=== PATIENT | female | born 1950 | race Two or more races ===

== ENCOUNTER 2020-12-19 06:19 | Day surgery (SDC) | payer OTHER ==
[2021-01-16] MEDS ORDERED: METOPROLOL SUCC50 MG PO (13:12)
[2021-01-16] MEDS ORDERED: COZAAR100 MG PO (13:12)
[2021-01-16] MEDS ORDERED: SIMVASTATIN PO (13:27)
[2021-01-16] MEDS ORDERED: DETROL LA4 MG PO (13:29)
== END 2020-12-19 10:10 | disposition home or self-care (01) ==
LOC: AMB-ENDOS 06:19
PROVIDERS: ATTEND Surgery
DX: D12.3 Benign neoplasm of transverse colon (principal); D12.4 Benign neoplasm of descending colon; Z20.822 Contact with and (suspected) exposure to COVID-19; K64.4 Residual hemorrhoidal skin tags

== ENCOUNTER 2021-01-20 06:25 | Day surgery (SDC) | payer OTHER ==
[~2021-01-20] VITALS: Ht 152.4 cm; Wt 72.6 kg
[~2021-01-20 06:25] MED LIST: COZAAR100 MG PO; DETROL LA4 MG PO; METOPROLOL SUCC50 MG PO; SIMVASTATIN PO
[2021-01-20] MEDS ORDERED: VITAMIN B-12100 MCG (08:24)
[2021-01-20] MEDS ORDERED: PRESERVISION A1 EAC2 (08:25)
[2021-01-20] MEDS ORDERED: ESCITALOPRAM OX10 MG (08:25)
[2021-01-20] MEDS ORDERED: CRANBERRY + VI1 EACH (08:25)
[2021-01-20] MEDS ORDERED: FISH OIL 1,0001 EAC5 (08:25)
[2021-01-20] MEDS ORDERED: INTESTINEX680 M1 (08:25)
[2021-01-20] MEDS ORDERED: MAXIMUM D3325 MCG (08:25)
[2021-01-20] MEDS ORDERED: SIMVASTATIN10 MG (08:25)
[2021-01-20] MEDS ORDERED: PREPARATION H O28 GM (08:26)
[2021-01-20] MEDS ORDERED: ANTACID LIQUID355 ML (08:26)
[2021-01-20] MEDS ORDERED: EYE DROPS15 ML (08:26)
[2021-01-20] MEDS ORDERED: MIRALAX510 GM (08:26)
[2021-01-20] MEDS ORDERED: AZO CRANBERRY1 EAC1 (08:26)
[2021-01-20] MEDS ORDERED: REFRESH TEARS15 ML (08:26)
[2021-01-20] MEDS ORDERED: A/F PAIN RELIE500 MG (08:26)
[2021-01-21] MEDS ORDERED: KETO10TA2 PO (07:52)
[2021-01-21] MEDS ORDERED: NEURONTIN300 MG PO (07:53)
[2021-01-21] MEDS ORDERED: PERCOCET 5-3251 EACH PO (07:53)
[2021-01-21] MEDS ORDERED: DERMOPLAST PAIN78 GM TOP (07:54)
== END 2021-01-21 14:07 | disposition home or self-care (01) ==
LOC: SURH 06:25 → CIR.AMB 06:25 → SURG 06:25 → O/R 06:25 → EDSTATUS 08:45 → SURH 08:45 → O/R 11:11 → SURG 11:11 → CIR.AMB 01-21 14:07 → SURG 01-21 14:07
PROVIDERS: ATTEND Surgery
PROC: 06BY3ZC Excision of Hemorrhoidal Plexus, Percutaneous Approach (ICD-10-PCS; 2021-01-20)
PROC: 3E0T3BZ Introduction of Anesthetic Agent into Peripheral Nerves and Plexi, Percutaneous Approach (ICD-10-PCS; 2021-01-20)
PROC: 3E0F7SF Introduction of Other Gas into Respiratory Tract, Via Natural or Artificial Opening (ICD-10-PCS; 2021-01-20)
PROC: 0JQC3ZZ Repair Pelvic Region Subcutaneous Tissue and Fascia, Percutaneous Approach (ICD-10-PCS; principal; 2021-01-20 10:30)
DX: N81.6 Rectocele (principal); K64.2 Third degree hemorrhoids; Z20.822 Contact with and (suspected) exposure to COVID-19

== ENCOUNTER 2025-05-16 08:00 | Day surgery (SDC) | payer OTHER ==
[2025-05-02 13:10] VITALS: BP 160/82
[~2025-05-16] VITALS: Ht 167.6 cm; Wt 81.6 kg
[~2025-05-16 08:00] MED LIST changes: +A/F PAIN RELIE500 MG; +ANTACID LIQUID355 ML; +AZO CRANBERRY1 EAC1; +BUPIVACAINE HCL/MPF 0.5% 30ML VIAL ONE; +CEFTRIAXONE SODIUM 2,000 MG VIAL ONE; +CRANBERRY + VI1 EACH; +DERMOPLAST PAIN78 GM TOP; +DIBUCAINE 30 GM TUBE ONE; +ESCITALOPRAM OX10 MG; +ESCITALOPRAM OX20 MG PO; +EYE DROPS15 ML; +FISH OIL 1,0001 EAC5; +HEMOSTATIC MATRIX 1 KIT KIT TOP ONE; +INTESTINEX680 M1; +KETO10TA2 PO; +LIDOCAINE HCL 1%/EPINEPHRINE 20ML VIAL IJ ONE; +MAXIMUM D3325 MCG; +METRONIDAZOLE/SODIUM CHLORIDE 500 MG/100 ML PIGGYBACK IV ONE; +MIRALAX510 GM; +NEURONTIN300 MG PO; +PERCOCET 5-3251 EACH PO; +POVIDONE-IODINE 118 ML BOTT TOP ONE; +PREPARATION H O28 GM; +PRESERVISION A1 EAC2; +REFRESH TEARS15 ML; +SIMVASTATIN10 MG; +VITAMIN B-12100 MCG
[2025-05-16] MEDS ORDERED: TRAM1TAB98 PO (12:22)
[2025-05-16] MEDS ORDERED: CELECOXIB200 MG PO (12:22)
[2025-05-16] MEDS ORDERED: NEURONTIN300 MG PO (12:22)
[2025-05-16] MEDS ORDERED: INTESTINEX680 M1 PO (12:22)
[2025-05-16] MEDS ORDERED: MORPHINE SULFATE 4 MG/ML CARTRIDGE IV PRN (16:45)
[2025-05-16] MEDS ORDERED: RINGERS SOLUTION,LACTATED 1,000 ML IV SCH (16:45)
[2025-05-16] MEDS ORDERED: OxyCODONE HCL 5 MG TABLET (ROXICODONE) PO PRN (16:45)
[2025-05-16] MEDS ORDERED: ONDANSETRON HCL 2 MG/ML VIAL IV PRN (16:45)
[2025-05-16] MEDS ORDERED: HYOSCYAMINE SULFATE 0.125 MG TAB.SUBL SL SCH (17:00)
[2025-05-16] MEDS ORDERED: GABAPENTIN 300 MG CAPSULE PO SCH (17:00)
[2025-05-16] MEDS ORDERED: ACETAMINOPHEN 500 MG GEL..CAP PO SCH (20:00)
[2025-05-16] MEDS ORDERED: FAMOTIDINE/PF 20 MG/2 ML VIAL IV PUSH SCH (21:00)
[2025-05-16] MEDS ORDERED: CELECOXIB 200 MG CAPSULE PO SCH (21:00)
[2025-05-17] MEDS ORDERED: LACTOBACILLUS ACIDOPHILUS 1 CAP CAP PO SCH (09:00)
[2025-05-17] MEDS ORDERED: ENOXAPARIN SODIUM 40 MG/0.4 ML SYRINGE SUBCUTANEO SCH (17:00)
[2025-05-18] MEDS ORDERED: ENOXAPARIN SODIUM 40 MG/0.4 ML SYRINGE SUBCUTANEO SCH (09:00)
== END 2025-05-16 15:15 | disposition home or self-care (01) ==
LOC: CIR.AMB 08:00
PROVIDERS: ATTEND Surgery
DX: K60.1 Chronic anal fissure (principal); K62.5 Hemorrhage of anus and rectum; K62.4 Stenosis of anus and rectum